=== PATIENT | female | born 1950 | race Asian ===

== ENCOUNTER 2016-05-06 02:58 | Emergency (ER) | payer OTHER ==
[~2016-05-06] VITALS: Ht 157.5 cm; Wt 75.0 kg
[~2016-05-06 02:58] MED LIST: HYDR25TA4 PO
[2016-05-06 03:15] VITALS: BP 182/106; PULSE 72; RESP 17; O2SAT 98
--- NOTE | 2016-05-06 03:24 | ED.REPORT ---
HPI-General Illness Date of Service May 06, 2016 ED Provider: Dr. Bundy Pt is a 65 year old female with a hx of a TIA 6 years ago and HTN presenting to the ED complaining of high blood pressure and palpitations onset just prior to arrival. Associated symptoms include back cramping, not being able to sleep tonight, feeling like something was "crawling up her arms and legs". Denies tingling or numbness. Denies any sided neurological symptoms. Denies visual disturbance piece disturbance sided numbness or weakness. She reports that she couldn't remember if she took her blood pressure medication this morning, so she took one this evening, but her blood pressure was still 160. Nursing Notes Stated Complaint: HIGH BLOOD PRESSURE Chief Complaint: General Complaint Nursing Notes Reviewed: Yes Allergies: Coded Allergies: promethazine (Verified Allergy, Unknown, 05/06/16) Scheduled Hydrochlorothiazide (Hydrochlorothiazide) 25 Mg Tablet 25 MG PO DAILY General Time Seen by MD: 03:23 Chief Complaint Other (High Blood Pressure) Hx Obtained From: Patient, Spouse Arrived By: Walk-in Sudden in Onset?: No Onset Occurred: Just prior to arrival Symptom Duration: Since onset Location: : Back Quality: Cramping, Painful Severity: Current: Mild Severity: Maximum: Moderate Recent Healthcare: No recent doctor visit, No recent hospitalization Similar Sx Previous: No Past Medical History Past Medical History Admit for TIA versus atypical migraine in August 2010 with negative MRI/MRA at that time (brain and neck vasculature were normal at that time, there was no carotid artery stenosis) Left subclavian artery stenosis (mild) Migraines Hepatitis C years ago Hypertension Chronic abdominal pain Polyps Past Surgical History Liposuction Endoscopy Family History Mother of a stroke at 78. Father of stomach cancer. Two brothers , she does not know any reason. Her kids are alive and well. Smoking History Never Smoker Social History Alcohol Use: 1-3 per day Drug Use: Denies drug use Other Social History: , Local resident Occupation Kitchen work Ambulatory Status Independent Review of Systems Full Review of Systems Cardiovascular: Reports: Palpitations Musculoskeletal: Reports: Back pain Neurologic: Denies: Numbness Complete sys rev & neg: except as marked. Physical Exam Vital Signs Vital Signs Date Time Temp Pulse Resp B/P Pulse Ox O2 Delivery O2 Flow Rate FiO2 05/06/16 04:53 55 16 152/100 99 Room Air 05/06/16 03:15 36.5 72 17 182/106 98 Room Air Initial VS: Reviewed Head / Eyes: Atraumatic, Normocephalic, PERRL ENT: Mucous membranes moist, Conjunctiva normal, No scleral icterus Respiratory: Breath sounds normal, Clear to auscultation, No respiratory distress Cardiovascular: Regular rate & rhythm, Heart sounds normal, Intact distal pulses Abdomen / GI: Soft, Non-tender, No guarding, No rebound, No distention Extremities: Vascular intact, Neuro intact, No swelling, No tenderness Skin: Warm, Dry, No cyanosis Neurologic: Alert, Oriented, Nonfocal Psychiatric: Mood/affect normal, Behavior normal, Normal thought content General/Constitutional: Awake, Alert, No acute distress Behavior: Positive: Anxious Neck: Atraumatic, Supple, No JVD Interpretation & Diagnostics Lab Results Interpretation Result Diagram: 05/06/16 0350 05/06/16 0350 Test 05/06/16 03:50 05/06/16 04:30 White Blood Count 5.2th/mm3 (3.8-10.1) Red Blood Count 4.61mil/mm3 (3.90-5.20) Hemoglobin 14.4g/dL (12.0-15.6) Hematocrit 41.2% (35.0-46.0) Mean Corpuscular Volume 89.4fL (81-100) Mean Corpuscular Hemoglobin 31.2pg (27.0-35.0) Mean Corpuscular Hemoglobin Concent 35.0% (32.0-37.0) Red Cell Distribution Width 12.2% (12.3-15.4) Platelet Count 205bil/L (150-400) Neutrophils (%) (Auto) 40.5% (40-74) Lymphocytes (%) (Auto) 41.3% (14-46) Monocytes (%) (Auto) 8.9% (4-12) Eosinophils (%) (Auto) 8.7% (0-5) Basophils (%) (Auto) 0.4% (0-3) Prothrombin Time 10.1sec (8.1-12.5) Prothromb Time International Ratio 0.95ratio Activated Partial Thromboplast Time 24.9sec (22.8-33.0) Sodium Level 139mEq/L (134-144) Potassium Level 3.5mEq/L (3.5-5.2) Chloride Level 102mEq/L (97-108) Carbon Dioxide Level 25mmol/L (18-29) Blood Urea Nitrogen 14mg/dL (8-27) Creatinine 0.51mg/dL (0.57-1.00) Estimat Glomerular Filtration Rate 174mL/min (>59) Glucose Level 123mg/dL (60-99) Calcium Level 9.1mg/dL (8.5-10.1) Magnesium Level 2.2mg/dL (1.6-2.6) Total Bilirubin 0.5mg/dL (0.0-1.2) Aspartate Amino Transf (AST/SGOT) 32U/L (0-50) Alanine Aminotransferase (ALT/SGPT) 40U/L (0-32) Alkaline Phosphatase 71U/L (25-165) Troponin T 0.010ug/L (0.0-0.011) Pro-B-Type Natriuretic Peptide 64.09pg/mL (0-287) Total Protein 6.9g/dL (6.4-8.4) Albumin 4.4g/dL (3.4-5.0) Hold [place] Top Tube Received (Received) Urine Color Straw (YELLOW) Urine Appearance Clear (CLEAR,HAZY) Urine pH 5.5 (5.0-8.0) Urine Specific [place] 1.010 (1.003-1.035) Urine Protein Negativemg/dL (NEG,TRACE) Urine Glucose (UA) Negativemg/dL (NEGATIVE) Urine Ketones Negativemg/dL (NEGATIVE) Urine Occult Blood Negative (NEGATIVE) Urine Nitrite Negative (NEGATIVE) Urine Bilirubin Negative (NEGATIVE) Urine Urobilinogen Normalmg/dL (NORMAL) Urine Leukocyte Esterase Negative (NEGATIVE) Urine RBC 0-2/hpf (0-2) Urine WBC 0-5/hpf (0-5) Urine Epithelial Cells Occasional/hpf (NONE-MOD) Urine Crystals None seen (NONE SEEN) Urine Bacteria Few/hpf (NONE-FEW) Urine Hyaline Casts None/lpf (NONE) Urine Granular Casts None seen (NONE SEEN) Urine Waxy Casts None seen (NONE SEEN) Urine Red Blood Cell Casts None seen (NONE SEEN) Urine White Blood Cell Casts None seen (NONE SEEN) Urine Mucus None seen (None Seen) Urine Trichomonas None seen (NONE SEEN) Urine Yeast None (NONE SEEN) Urinalysis Comment None Urine Culture Reflexed Not indicated ECG Interpretation ECG Interpretation: Probable left ventricular hypertrophy Time: 03:22 Interpreted by: ED physician Normal ECG Interpretation: Normal rate (63), Normal sinus rhythm X-Ray Chest Interpretation Chest Xray Interpretation: Negative. View: Portable, 1 view Interpretation / Wet Read by: Wet read ED physician Re-Eval/Medical Decision Med Decision/Clinical Course Chronic hypertension and a 65-year-old, who is also quite anxious about her specific numbers. I discussed with her and her at some length, the parameters that should prompt an emergency visits. She was provided with Lopressor orally here, with good response. She wants something to help her sleep, and some Ativan was provided, but she wants more. I gave her some Benadryl as the alternative and she is discharged now in stable condition for follow-up with her PCP in the office. Time of Eval: 04:40 Patient Status: Condition improved Re-Evaluation/Progress Note: Discussed plan for discharge. Pt understands and agrees with plan. Counseled Regarding: Diagnosis, Lab results, Need for follow-up, When/why to return to ED Discharge & Departure Primary Impression: Hypertension Hypertension type: essential hypertension Hypertension goal: unspecified goal Qualified Code: I10 - Essential (primary) hypertension Additional Impressions: Palpitations Anxiety Insomnia Insomnia type: psychophysiologic Qualified Code: F51.04 - Psychophysiologic insomnia Disposition: Home Discharge Condition All VS Reviewed: Yes Condition: Improved Patient Instructions: Chronic Hypertension (ED), Palpitations (ED) Additional Instructions: Call your doctor today for follow-up in the office. You may need some additions to your blood pressure medicines. You do not need to be concerned about blood pressures minute by minute. A blood pressure above 200/100 that stays at that level for more than an hour should prompt a visit. Lesser blood pressures and that should just be recorded and reported to your doctor the next day. Return if any immediate issues. Referrals: NOPCP (PCP) Jorge Monteiro MD Attestation Portions of this note were transcribed by Micheline Dunn. I, Dr. Bundy personally performed the history, physical exam and medical decision-making; I reviewed and confirmed the accuracy of the information in the transcribed note. Signed by: Gamaliel Padilla, 05/06/2016 at 0520. copies to: Jorge Monteiro MD, Christopher W MD May 06, 2016 03:24 MICHELINE DUNN May 06, 2016 03:37
[2016-05-06 04:00] LABS: BASOPHILS % (AUTO) 0.4 % (0-3); EOSINOPHILS % (AUTO) 8.7 % (0-5); MONOCYTES % (AUTO) 8.9 % (4-12); Mean Corpuscular Hemoglobin 31.2 pg (27.0-35.0); Mean Corpuscular Volume 89.4 fL (81-100); NEUTROPHILS % (AUTO) 40.5 % (40-74); Platelet Count 205 bil/L (150-400)
[2016-05-06 04:18] LABS: INR 0.95 ratio
[2016-05-06 04:22] LABS: TROPONIN T 0.01 ug/L (0.0-0.011)
[2016-05-06 04:33] LABS: Magnesium 2.2 mg/dL (1.6-2.6)
[2016-05-06 04:45] LABS: APPEARANCE,URINE CLEAR (CLEAR,HAZY); COLOR,URINE STRAW (YELLOW); OCCULT BLOOD,URINE NEGATIVE (NEGATIVE); PH,URINE 5.5 (5.0-8.0); UROBILINOGEN,URINE NORMAL (NORMAL)
[2016-05-06] MEDS ORDERED: diphenhydrAMINE 50 mg Capsule PO ONE (04:45)
[2016-05-06] MEDS ORDERED: diphenhydrAMINE 25 mg Capsule PO ONE (04:45)
[2016-05-06 04:53] VITALS: BP 152/100; PULSE 55; RESP 16; O2SAT 99
--- NOTE | 2016-05-06 16:59 | DRSVH ---
PROCEDURE: X-RAY CHEST ONE VIEW, PORTABLE ([id number]) INDICATIONS: palpitations TECHNIQUE: One view of the chest was acquired. COMPARISON: [facility], , CHEST 1VW (PORTABLE), 06/10/2014, 18:46. FINDINGS: Surgical changes and devices: None. Lungs and pleura: No pleural effusions or pneumothorax. Lungs are clear. Mediastinum: Mediastinal contours appear normal. Heart size is normal. Bones and chest wall: No suspicious bony lesions. Overlying soft tissues appear unremarkable. IMPRESSION: No acute cardiopulmonary disease. Dictated by: Champ Jaimes [facility] Interpreted: Rose Segundo MD on 05/06/2016 at 9:04 Transcribed by: ZIGGY on 05/06/2016 at 9:04 Approved by: Rose Segundo MD, PhD on 05/06/2016 at 16:57
== END 2016-05-06 05:27 | disposition home or self-care (01) ==
LOC: SED 02:58
DX: I10 Essential (primary) hypertension (principal); F51.04 Psychophysiologic insomnia; F41.9 Anxiety disorder, unspecified; R00.2 Palpitations; M54.9 Dorsalgia, unspecified; Z86.73 Personal history of transient ischemic attack (TIA), and cerebral infarction without residual deficits; Z88.8 Allergy status to other drugs, medicaments and biological substances
CPT/HCPCS: 36415; 71010; 80053; 81000; 83735; 83880; 84484; 85025; 85610; 85730; 93005; 96374; 99285; J2060